=== PATIENT | male | born 1985 | race Two or more races ===

== ENCOUNTER 2016-12-27 00:57 | Emergency (ER) | payer SELFPAY ==
[2016-12-27 01:13] VITALS: BP 127/67
[2016-12-27] MEDS ORDERED: AMOXICILLIN TR/POT CLAVULANATE 500-125 MG TAB PO ONE (02:26)
[2016-12-27] MEDS ORDERED: AMOXICILLIN TRIHYDRATE 500 MG CAPSULE PO ONE (02:26)
[2016-12-27] MEDS ORDERED: OXYCODONE-ACETAMINOPHEN 5-325 MG TABLET PO ONE (02:26)
[2016-12-27] MEDS ORDERED: ONDANSETRON 4 MG TAB.RAPDIS PO ONE (02:26)
--- NOTE | 2016-12-27 02:27 | ER Document Report ---
ED Animal Bite - General Chief Complaint: Cat Bite Stated Complaint: POSSIBLE CAT BITES INFECTED Time Seen by Provider: 12/27/16 02:23 Notes: Patient is a 31-year-old male comes emergency department for chief complaint of cat bites and scratches to his left forearm. This happened yesterday, he noticed redness and increased pain today. 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 He denies fever, diabetes, he reports his tetanus is up-to-date. TRAVEL OUTSIDE OF THE [place] IN LAST 30 DAYS: No Past Medical History - General Information source: Patient - Social History Smoking Status: Never Smoker Frequency of alcohol use: None Drug Abuse: None Lives with: Alone Family History: Reviewed & Not Pertinent - Medical History Medical History: Negative Renal/ Medical History: Denies: Hx Peritoneal Dialysis Surgical Hx: Negative - Immunizations Immunizations up to date: Yes Hx Diphtheria, Pertussis, Tetanus Vaccination: Yes Review of Systems - Review of Systems Constitutional: No symptoms reported EENT: No symptoms reported Cardiovascular: No symptoms reported Respiratory: No symptoms reported Gastrointestinal: No symptoms reported Genitourinary: No symptoms reported Male Genitourinary: No symptoms reported Musculoskeletal: See HPI Skin: See HPI Hematologic/Lymphatic: No symptoms reported Neurological/Psychological: No symptoms reported Physical Exam - Vital signs Vitals: Temp Pulse Resp BP Pulse Ox 98.6 F 88 16 127/67 H 99 12/27/16 01:08 12/27/16 01:08 12/27/16 01:08 12/27/16 01:08 12/27/16 01:08 Interpretation: Normal - General General appearance: Appears well, Alert In distress: None - HEENT Head: Normocephalic, Atraumatic Eyes: Normal Pupils: PERRL - Respiratory Respiratory status: No respiratory distress Chest status: Nontender Breath sounds: Normal Chest palpation: Normal - Cardiovascular Rhythm: Regular Heart sounds: Normal auscultation Murmur: No - Abdominal Inspection: Normal Distension: No distension Bowel sounds: Normal Tenderness: Nontender Organomegaly: No organomegaly - Back Back: Normal, Nontender - Extremities General upper extremity: Other - left Forearm with multiple punctures, multiple scratches, there is surrounding erythema at the puncture and scratch sites, there is no significant swelling, there is mild heat, there is no streaking redness away from the puncture sites. Normal hand exam, normal neurovascular exam, normal exam otherwise General lower extremity: Normal inspection, Nontender, Normal color, Normal ROM , Normal temperature, Normal weight bearing. No: Jillian's sign - Neurological Neuro grossly intact: Yes Cognition: Normal Orientation: AAOx4 John Coma Scale Eye Opening: Spontaneous John Coma Scale Verbal: Oriented [place] Coma Scale Motor: Obeys Commands [place] Coma Scale Total: 15 Speech: Normal Motor strength normal: LUE, RUE, LLE, RLE Sensory: Normal - Psychological Associated symptoms: Normal affect, Normal mood - Skin Skin Temperature: Warm Skin Moisture: Dry Skin Color: Normal Course - Re-evaluation Re-evalutation: X-ray with no evidence of teeth or other abnormality. Examination consistent with early infected cat bites and scratches, patient covered with Augmentin, discussed strict return precautions, provided with a work note so he can rest and elevate the arm, patient states understanding and agreement. - Vital Signs Vital signs: Temp Pulse Resp BP Pulse Ox 98.6 F 88 16 127/67 H 99 12/27/16 01:08 12/27/16 01:08 12/27/16 01:08 12/27/16 01:08 12/27/16 01:08 Discharge - Discharge Clinical Impression: Cat bite Qualifiers: Encounter type: initial encounter Qualified Code(s): W55.01XA - Bitten by cat, initial encounter Cellulitis Qualifiers: Site of cellulitis: extremity Site of cellulitis of extremity: upper extremity Laterality: left Qualified Code(s): L03.114 - Cellulitis of left upper limb Condition: Stable Disposition: HOME, SELF-CARE Additional Instructions: No abnormality seen on x-ray. Exam shows cellulitis from the cat bite. Take the Augmentin as directed to completion. Keep wounds clean (clean gently with soap/water). Follow up with primary care Return to the ED immediately for any concerning or worsening symptoms - spreading redness, fever, swelling, discolored discharge etc. Prescriptions: Amox Tr/Potassium Clavulanate [Augmentin 875-125 Tablet] 1 tab PO BID 10 Days Amox Tr/Potassium Clavulanate [Augmentin 875-125 Tablet] 1 tab PO BID 7 Days Forms: Return to Work
--- NOTE | 2016-12-27 03:12 | RADIOLOGY REPORT (SQ) ---
EXAM DESCRIPTION: FOREARM LEFT COMPLETED DATE/TIME: 12/27/2016 2:57 am REASON FOR STUDY: cat bites; ? foreign bodies COMPARISON: None. NUMBER OF VIEWS: Two views. TECHNIQUE: Two radiographic images acquired of the left forearm, including elbow and wrist in at [address] one projection. LIMITATIONS: None. FINDINGS: MINERALIZATION: Normal. BONES: No acute fracture. No worrisome bone lesions. SOFT TISSUES: Mild swelling. Known soft tissue injury. OTHER: No other significant finding. IMPRESSION: No evidence of significant bone, or joint abnormality. No radiopaque foreign body. Loyd seo soft tissue injury. TECHNICAL DOCUMENTATION: JOB ID: [id number] [employer]- All Rights Reserved
== END 2016-12-27 04:15 | disposition home or self-care (01) ==
LOC: ER 00:57
DX: S51.852A Open bite of left forearm, initial encounter (principal); L03.114 Cellulitis of left upper limb; W55.01XA Bitten by cat, initial encounter; Y93.89 Activity, other specified; Y92.009 Unspecified place in unspecified non-institutional (private) residence as the place of occurrence of the external cause; Y99.0 Civilian activity done for income or pay
CPT/HCPCS: 99283; 73090; S0119

== ENCOUNTER 2020-03-02 22:58 | Emergency (ER) | payer OTHER ==
[2020-03-02 23:06] VITALS: BP 139/79
[2020-03-02] MEDS ORDERED: LIDOCAINE 1% INJ-PF (10 MG/ML) 30 ML SDV IM ONE (23:55)
[2020-03-02] MEDS ORDERED: AZITHROMYCIN 250 MG TABLET PO ONE (23:55)
[2020-03-02] MEDS ORDERED: CEFTRIAXONE INJ 250 MG VIAL IM ONE (23:55)
--- NOTE | 2020-03-02 23:55 | ER Document Report ---
HPI - HPI Patient complains to provider of: possible STD exposure Time Seen by Provider: 03/02/20 23:38 Pain Level: 3 Notes: 35-year-old male to the emergency department with complaints of possible STD exposure. He states that about 10 days ago he had unprotected sex with a woman that he is afraid may have had an STD. He states that he has developed a painful sore on his penis just below the head. He states that he has a history of cold sores but he is never had any sort of herpes symptoms in his genitalia before. He denies any penile discharge or testicular pain. He states that he is also concerned for possibly syphilis. He states that he had a little sore come up on his mouth and he was concerned that it may be related to that. He denies any other symptoms. - CONSTITUTIONAL Constitutional: DENIES: Fever, Chills - EENT EENT: DENIES: Sore Throat, Ear Pain, Nasal Drainage-Clear, Nasal Drainage- Purulent, Congestion, Eye problems - NEURO Neurology: DENIES: Headache - CARDIOVASCULAR Cardiovascular: DENIES: Chest pain - RESPIRATORY Respiratory: DENIES: Trouble Breathing, Coughing - GASTROINTESTINAL Gastrointestinal: DENIES: Abdominal Pain, Nausea, Patient vomiting, Diarrhea - URINARY Urinary: DENIES: Dysuria, Urgency, Frequency - REPRODUCTIVE Notes: Sore on penis - DERM Notes: sore to penis Past Medical History - General Information source: Patient - Social History Smoking Status: Never Smoker Frequency of alcohol use: None Drug Abuse: None Family History: Reviewed & Not Pertinent Renal/ Medical History: Denies: Hx Peritoneal Dialysis - Immunizations Immunizations up to date: Yes Hx Diphtheria, Pertussis, Tetanus Vaccination: Yes Vertical Provider Document - CONSTITUTIONAL Agree With Documented VS: Yes Exam Limitations: No Limitations General Appearance: WD/WN - INFECTION CONTROL TRAVEL OUTSIDE OF THE [place] IN LAST 30 DAYS: No - HEENT HEENT: Atraumatic, Normal ENT Exam - NECK Neck: Normal Inspection, Supple - RESPIRATORY Respiratory: Breath Sounds Normal, No Respiratory Distress. negative: Rales, Rhonchi, Wheezing - CARDIOVASCULAR Cardiovascular: Regular Rate, Regular Rhythm, No Murmur - GI/ABDOMEN Gastrointestinal: Abdomen Soft, No Organomegaly, Normal Bowel Sounds - REPRODUCTIVE Notes: chaperoned by tech. there is a small painful ulceration just below the base of the penis. no other lesions to the penis. testicles non tender to palpation - MUSCULOSKELETAL/EXTREMETIES Musculoskeletal/Extremeties: RANJITH WANG - NEURO Level of Consciousness: Awake, Alert Motor/Sensory: No Motor Deficit, No Sensory Deficit - DERM Integumentary: Warm Course - Re-evaluation Re-evalutation: Impression: Possible STD exposure. Patient with a painful shallow based ulcer to the penis which is concerning for genital herpes. Will go ahead and start on Valtrex. Patient would like empiric treatment for gonorrhea and chlamydia. he has no maculopapular rash to his hands and no evidence for chancre. RPR is pending. Advised patient to get tested for HIV with primary care physician. Patient agrees with plan - Vital Signs Vital signs: Temp Pulse Resp BP Pulse Ox 99.1 F 80 17 139/79 H 100 03/02/20 23:05 03/02/20 23:05 03/02/20 23:05 03/02/20 23:05 03/02/20 23:05 Discharge - Discharge Clinical Impression: Genital lesion, male, Possible exposure to STD Condition: Stable Disposition: HOME, SELF-CARE Instructions: Genital Herpes ([facility]) Additional Instructions: No sex for 2 weeks. Partner needs to be tested and treated., Follow up with primary care for HIV testing. Prescriptions: Valacyclovir HCl [Valtrex 500 Mg Tablet] 1,000 mg PO TID #42 tablet Forms: Return to Work Referrals: [facility] [Primary Care Provider] - Follow up as needed
[2020-03-03 01:49] LABS: CHLAM PCR NOT DETECTED (NOT DETECT)
== END 2020-03-03 01:20 | disposition home or self-care (01) ==
LOC: ER 22:58
DX: Z20.2 Contact with and (suspected) exposure to infections with a predominantly sexual mode of transmission (principal); L98.8 Other specified disorders of the skin and subcutaneous tissue
CPT/HCPCS: 99284; 96372; 36415; 86592; 87250; 87491; 87591; J3490; J0696